=== PATIENT | female | born 1990 | race Caucasian/White ===

== ENCOUNTER 2017-11-07 17:02 | Outpatient (CLI) | payer BC ==
[2017-11-07 17:20] LABS: Hemoglobin 14.7 g/dL (12.0-16.0); Mean Corpuscular HGB CONC 33.9 g/dL (32.0-36.0); Mean Corpuscular Hemoglobin 29.2 pg (27.0-31.0); Mean Corpuscular Volume 86.1 fl (81.0-99.0); Mean Platelet Volume 8.4 fL (7.4-10.4); Platelet Count 278 thou/uL (130-400); RBC Distribution Width 12.8 % (11.5-14.5); Red Blood Cell (RBC) Count 5.04 mill/uL (4.20-5.40); White Blood Cell (WBC) Count 15.4 thou/uL (4.8-10.8)
[2017-11-07 17:36] LABS: BHCG - Serum Negative (NEGATIVE); Pregs Control Background? CLEAR/WHITE (CLR/WHITE); Pregs Control Bar Appear? YES (CONTROL BAR)
== END 2017-11-07 17:03 | disposition home or self-care (01) ==
LOC: LABBT 17:02
PROVIDERS: ATTEND Student in an Organized Health Care Education/Training Program
DX: Z01.812 Encounter for preprocedural laboratory examination (principal); R10.31 Right lower quadrant pain; N83.8 Other noninflammatory disorders of ovary, fallopian tube and broad ligament
CPT/HCPCS: 84703; 85027; 86850; 86900; 86901

== ENCOUNTER 2017-11-10 08:03 | Day surgery (SDC) | payer BC ==
[2017-11-07 17:27] VITALS: BMI 36.7
--- NOTE | 2017-11-10 07:55 | HP ---
DATE OF SURGERY: 11/10/2017 CHIEF COMPLAINT: Right lower quadrant pain. HISTORY OF PRESENT ILLNESS: This is a 27-year-old G1 with approximately 3-month history of worsening right lower quadrant pain and was found to have a palpable mass on exam and ultrasound finding of a right adnexal solid mass measuring 9.06 x 5.57 x 7.20 cm with no internal vascularity. The patient h ad normal tumor markers preoperatively and is dispositioned to undergo removal of right ovary laparos copically. CURRENT MEDICATIONS: Citalopram 40 mg p.o. daily. PAST MEDICAL HISTORY: Depression. PAST SURGICAL HISTORY: Denies. OBSTETRIC HISTORY: G1, P1, x1. GYNECOLOGIC HISTORY: No abnormal Paps, no STD. SOCIAL HISTORY: Negative x3. ALLERGIES: GLUTEN. FAMILY HISTORY: Noncontributory. PHYSICAL EXAMINATION: VITAL SIGNS: Blood pressure 118/70, pulse is 78, respirations 18, weight 214, BMI is 37.9. GENERAL: No acute distress. CARDIAC: Regular rate and rhythm. LUNGS: Clear to auscultation bilaterally. ABDOMEN: Soft, nontender, nondistended. EXTREMITIES: No edema, cyanosis, or clubbing. PELVIC: Deferred to OR. ASSESSMENT AND PLAN: This is a 27-year-old G1, P1 with a right ovarian mass and right lower quadrant pain, dispositioned for robotic-assisted single side laparoscopic right salpingo-oophorectomy. Disc ussed risks of surgery to include bleeding, transfusion, infection, damage to surrounding structures, conversion to open procedure, risk of underlying malignancy, and need for future referral to [facility]c ology. However, secondary to the benign characteristics of no internal vascular flow, no free fluid, and normal tumor markers including CA-125, CEA, CA 19-9, germ cell tumor markers and . The pat ient understands and wishes to proceed and will follow up with me in 2 weeks' postoperative time.
[2017-11-10] MEDS ORDERED: CEFAZOLIN/Water 2 GM/20 ML SYRINGE ONE (09:00)
[2017-11-10] MEDS ORDERED: Midazolam HCl 2 mg/2 ml Vial ONE (09:19)
[2017-11-10] MEDS ORDERED: Bupivacaine HCl 0.5%/Epinephrine 1:200,000/PF 30 ml Vial ONE (09:30)
[2017-11-10] MEDS ORDERED: Fentanyl 250 MCG/5 ML VIAL ONE (09:34)
[2017-11-10] MEDS ORDERED: Fentanyl 100 MCG/2 ML VIAL ONE ×2 (11:56→13:24)
[2017-11-10] MEDS ORDERED: Ondansetron HCl/PF 4 MG/2 ML Vial ONE ×2 (11:56→17:01)
[2017-11-10] MEDS ORDERED: Promethazine HCl 25 MG/ML VIAL ONE (12:16)
--- NOTE | 2017-11-10 12:19 | OP ---
DATE OF OPERATION: 11/10/2017 PREOPERATIVE DIAGNOSIS: Right adnexal mass. POSTOPERATIVE DIAGNOSIS: Right ovarian dermoid. PROCEDURE: Robotic assisted single site laparoscopic right salpingo- oophorectomy and pelvic washings. ATTENDING SURGEON: Bailey Chao M.D. FREELANCE TRANSLATOR SURGEON: Toni Lange M.D. ESTIMATED BLOOD LOSS: 30 mL. INTRAVENOUS FLUIDS: One liter crystalloid. URINE OUTPUT: 500 mL of clear urine. COMPLICATIONS: None. PATHOLOGY: Ovary and fallopian tube, pelvic washings for cytology. DRAINS: None. ANESTHESIA: General endotracheal. FINDINGS: Approximately 9 cm right adnexal mass. No free fluid. The ovarian mass was smooth with no evidence of extraovarian malignant findings. On extraction of tissue, there was a large amount of sebaceous and hair material that came out from the cyst consistent with teratoma. There was no spillage of cystic contents into the abdomen. OPERATIVE TECHNIQUE: The patient was taken to the operating room where general anesthesia was obtained without difficulty. The patient was prepped and draped in a sterile fashion in dorsal lithotomy position. A Germain catheter was placed in the bladder. Speculum was placed in the vagina. Anterior lip of the cervix was grasped with single tooth tenaculum. The diagnostic GEORGE was placed into the uterus. The tenaculum and speculum were removed out of the vagina. Legs were placed in low lithotomy. Attention was turned to the abdomen. The umbilicus was everted with 2 Jennifer clamps and a 2.5 cm umbilical incision was made. The subcu was then dissected off the fascia with the Mayos and the fascia was sharply entered into with the Mayos and extended to accommodate the mini Sacha approximately 2.5 cm. The mini Sacha was then placed into the abdomen, ensuring no abdominal structures were caught in the O Sacha. This was cinched down. The trocars were then placed into the mini Gelpoint and 8 mm camera port, the single site robotic trocars and an 11 mm assist port and this was then affixed to top of Sacha and pneumoperitoneum was established. Steep Trendelenburg was obtained and the above findings were noted. Photodocumentation was performed. The robot was then docked. The robotic instruments were advanced into the abdomen under direct visualization. The right robotic arm contained the monopolar hook and left robotic arm contained a fenestrated bipolar. Surgeon console then took control. Suction nuclear equipment design engineer was placed into the assist port and pelvic washings were collected and sent for final cytology. The ovary was grasped and elevated. The ureter was noted to be running very medially at the pelvic brim well away from the infundibulopelvic ligament. The fenestrated was clamped across the infundibulopelvic ligament and hugged underneath the ovary and cauterized multiple times as the vessels were engorged. Then transected with a hook. This cautery followed by transection with the hook was performed around the mesovarium including the fallopian tube, ensuring hemostasis. There was slight oozing from the infundibulopelvic ligament. Again, this was hemostatic with the fenestrated bipolar. Once the majority of the ovarian mass had been dissected off of the mesovarium, the uteroovarian and medial fallopian tube were clamped across with the fenestrated and cauterized several times and subsequently transected. There was a slight difficulty in maintaining pneumoperitoneum after a period of time secondary to leaks in the mini Gelpoint ; however, once pneumoperitoneum was reestablished, the ovary was elevated and the remainder of the uteroovarian pedicle was transected and incised and the ovary was then free in the abdomen. Hemostasis was achieved of the surgical site and irrigation was performed as well as low pressure check. An 11 mm bag was placed into the abdomen and at that time, the robot was undocked. The mini Gelpoint was then again situated with the camera port and an assistant manager airside operations port and with the bag blunty introduced into the gelpoint. The ovary was manipulated into the bag without difficulty using a scooping mechanism and pressure on anterior abdominal wall. The bag was cinched and brought to the anterior abdominal wall. The mini Gelpoint was then removed off of the Sacha and the bag and specimen were brought to the abdominal wall. The ovary was incised with scalpel. There was a copious amount of the sebaceous material that returned. This was a suction out to decompress the ovary. The ovary was then incised several additional times to allow it to deliver through the Sacha incision and this was sent for final pathology. The bag was removed out of the abdomen. The abdomen was irrigated copiously with saline and suctioned. The Sacha was then removed out of the fascia and the ONQ pump was placed subfascial around the umbilical incision with the use of a tunneler in a semicircular motion beginning at approximately 3:00 in reference to theumbilicus and curving around to approximately 9:00. The ONQ catheter was threaded through this tunneler and test dose was performed, this was secured in place. The fascia was then closed with an 0 PDS in a [id number] fashion with excellent reapproximation. The subcutaneous tissue was irrigated and injected with 20 mL of 0.5% Marcaine with epinephrine. The skin was closed with 4-0 Monocryl in a subcuticular fashion. Dermabond was applied as well as a pressure dressing. The manipulator was removed out the vagina. Hemostasis was noted. All instruments removed out. The patient tolerated procedure well. Sponge and needle counts were correct x2. The patient was taken to recovery room in stable condition. JAIDEN
[2017-11-10] MEDS ORDERED: Ropivacaine 0.2% 550 ML 550 ML NERVE BLCK SCH (12:20)
[2017-11-10] MEDS ORDERED: HYDROcodone/Acetaminophen 5/325 mg Tablet ONE (16:33)
[2017-11-10] MEDS ORDERED: Lidocaine 1% PF 5 ML VIAL ONE (17:01)
[2017-11-10] MEDS ORDERED: Ketorolac Tromethamine 30 MG/ML VIAL ONE (17:01)
[2017-11-10] MEDS ORDERED: Dexamethasone 20 MG/5 ML VIAL ONE (17:01)
[2017-11-10] MEDS ORDERED: Glycopyrrolate 0.2 MG/ML 5 ML SYRINGE ONE (17:01)
[2017-11-10] MEDS ORDERED: PHENYLEPHRINE-NS 100 MCG/ML 10 ML SYRINGE ONE (17:01)
[2017-11-10] MEDS ORDERED: PROPOFOL 200 MG/20 ML VIAL ONE (17:01)
[2017-11-10] MEDS ORDERED: ePHEDrine/0.9% NaCl/PF SYRINGE 50 mg/10 ml ONE (17:01)
== END 2017-11-10 17:17 | disposition home or self-care (01) ==
LOC: SDC 08:03
PROVIDERS: ATTEND Student in an Organized Health Care Education/Training Program
PROC: 0UT04ZZ Resection of Right Ovary, Percutaneous Endoscopic Approach (ICD-10-PCS; principal; 2017-11-10)
PROC: 0UT54ZZ Resection of Right Fallopian Tube, Percutaneous Endoscopic Approach (ICD-10-PCS; principal; 2017-11-10)
DX: Z91.018 Allergy to other foods; D27.0 Benign neoplasm of right ovary; F32.9 Major depressive disorder, single episode, unspecified; Z79.899 Other long term (current) drug therapy
CPT/HCPCS: 88112; 88307; A4306; J0131; J0670; J1100; J1885; J2001; J2250; J2405; J2550; J2704; J2795; J3010